=== PATIENT | female | born 1980 | race Caucasian/White ===

== ENCOUNTER 2019-08-16 21:51 | Inpatient (IN) ==
--- NOTE | 2019-08-16 22:26 | EKG Report ---
Test Performed on : 08/16/2019 10:03:06 PM Test Reason : sob Blood Pressure : / mmHG Vent. Rate : 103 BPM Atrial Rate : 103 BPM P-R Int : 128 ms QRS Dur : 066 ms QT Int : 334 ms P-R-T Axes : 050 032 025 degrees QTc Int : 437 ms Sinus tachycardia. Nonspecific ST abnormality Abnormal ECG No previous ECGs available Unconfirmed Result
[2019-08-16 22:28] LABS: URINE SOURCE CLEAN CATCH
[2019-08-16 22:32] LABS: BASO# 0.02 X1000 (0.0-0.2); BASO% 0.2 % (0.0-0.8); EOS# 0.04 X1000 (0.0-0.7); EOS% 0.4 % (0.0-10.0); HEMATOCRIT 32.8 % (37.0-47.0); HEMOGLOBIN 10.1 g/dL (12.0-16.0); IMM GRAN# 0.02 X1000 (0.0-0.04); IMM GRAN% 0.2 % (0.0-0.5); LYMPH# 1.82 X1000 (1.2-3.4); LYMPH% 17.5 % (20.5-51.1); MCH 23.2 PG (27-31); MCHC 30.8 g/dL (33-37); MCV 75.4 FL (81-99); MONO# 0.89 X1000 (0.11-0.59); MONO% 8.5 % (1.7-9.3); MPV 11.5 FL (7.4-10.4); NEUT# 7.63 X1000 (1.4-6.5); NEUT% 73.2 % (42.2-75.2); PLT 306 X1000 (130-400); RBC 4.35 XMIL (4.2-5.4); RDW 13.8 % (11.5-14.5); WBC 10.42 X1000 (4.8-10.8)
[2019-08-16 22:41] LABS: BILIRUBIN URINE NEGATIVE (NEGATIVE); BLOOD URINE NEGATIVE (NEGATIVE); COLOR YELLOW; GLUCOSE URINE NEGATIVE (NEGATIVE); KETONE URINE 20 mg/dL (NEGATIVE); LEUKOCYTES URINE SMALL (NEGATIVE); NITRITE URINE NEGATIVE (NEGATIVE); PH URINE 6.5; PROTEIN URINE 30 mg/dL (NEGATIVE); SP GRAVITY URINE 1.029; TURBIDITY URINE CLEAR (CLEAR); UROBILINOGEN URINE NORMAL (NORMAL)
[2019-08-16 22:43] LABS: UR EPITHELIAL CELLS <10 /HPF (<10); URINE BACTERIA NEGATIVE /HPF; URINE RBC <10 /HPF (<10); URINE WBC <10 /HPF (<10)
[2019-08-16 22:44] LABS: ESTIMATED GFR > 60
[2019-08-16 22:50] LABS: AGAP 11; ALB/GLOB RATIO 1.1; ALBUMIN 3.7 g/dL (3.5-5.0); ALKALINE PHOSPHATASE 85 U/L (32-104); AMYLASE 14 U/L (20-200); BUN 8 mg/dL (8-22); CALCIUM 9.4 mg/dL (8.8-10.2); CHLORIDE 100 mmol/L (98-107); COSMO 270; CREATININE 0.6 mg/dL (0.5-0.9); GLUCOSE 121 mg/dL (70-104); GOT 16 U/L (10-30); GPT 8 U/L (10-36); LIPASE 20 U/L (13-60); POTASSIUM 4.2 mmol/L (3.5-5.1); SODIUM 135 mmol/L (136-145); TCO2 24 mmol/L (25-35); TOTAL BILIRUBIN 0.43 mg/dL (0.20-1.00)
[2019-08-17] MEDS ORDERED: ZOFRAN IV ONE (04:08)
[2019-08-17] MEDS ORDERED: MORPHINE IV ONE ×2 (04:08→09:05)
[2019-08-17] MEDS ORDERED: ZITHROMAX PO ONE (04:56)
[2019-08-17] MEDS ORDERED: ROCEPHIN IM ONE (04:56)
[2019-08-17] MEDS ORDERED: XYLOCAINE-MPF 1% INJ ONE (04:56)
[2019-08-17] MEDS ORDERED: ROCEPHIN 1 GM in NS 50 ML IV ONE (05:04)
--- NOTE | 2019-08-17 05:29 | PROVIDER DOCUMENTATION ---
This chart was entered by Syeda Ivey Scribe, acting as scribe for Lamine Ricardo MD. HPI-General Adult - General Chief Complaint: Abdominal Pain Stated Complaint: RIGHT SIDE PAIN Time Seen by Provider: 08/17/19 00:31 Source: patient Allergies/Adverse Reactions: Patient Allergies Allergy/AdvReac Type Severity Reaction Status Date / Time No Known Allergies Allergy Verified 03/27/16 08:39 Home Medications: Home Medication List Medication Instructions Recorded Confirmed Last Taken Type Albuterol Sulfate [Proair Hfa] 2 puff IH PRN PRN 03/27/16 04/01/16 03/25/16 History Amphet Asp/Amphet/D-Amphet 1.5 tab PO BID 03/27/16 04/01/16 03/28/16 History [Adderall 10 mg Tablet] Clomiphene Citrate [Clomid] 50 mg PO DIRECTED 03/27/16 04/01/16 03/12/16 History Hydrocodone/APAP 7.5 mg/325 mg 1 each PO Q4-6H PRN PRN #0 tablet 04/01/16 Unknown Rx [[place]-7.5] - History of Present Illness -Gen Adult Nature of Presenting Problems: 39 yowf presents to er w/cc pain in rt rib radiating to rt flank w./nausea and 1 episode of "aggressive" vomiting friday night. pt sts she has had constant muscle spasm in rt flank for 4 hrs. denies fever, eent, diarrhea, dysuria, hematuria, and denies trauma. hx of gerd. sx fall bladder and lapband. pt denies unusual physical activity. Location of Pain/Injury: reports: abdomen (ruq), other (rt rib) Pain Radiation: reports: flank (R) Quality of Pain: reports: sharp Severity: reports: mild Onset/Duration: reports: last night Timing: reports: still present Context/Activities at Onset: reports: none Modifying Factors: improves with: breathing, palpation Associated Symptoms: reports: nausea, vomiting (x1 friday) Review of Systems - Adult - REVIEW OF SYSTEMS - ADULT Constitutional: reports: no symptoms reported. denies: fever, fatique, night sweats Eyes: reports: no symptoms reported Ears, Nose, Mouth & Throat: reports: no symptoms reported Cardiovascular: reports: see HPI, other (rt rib pain radiating to rt flank). denies: chest pain, heart murmur, palpitations Respiratory: reports: no symptoms reported Gastrointestinal: reports: see HPI, abdominal pain (ruq), nausea, vomiting (x1 episode friday which was aggressive). denies: hematemesis, diarrhea, difficulty swallowing Genitourinary: reports: see HPI, flank pain (rt). denies: dysuria, hematuria, hesitency Musculoskeletal: reports: see HPI, other (muscle spasms). denies: back pain, joint pain, joint swelling, neck pain Integumentary: reports: no symptoms reported Neurological: reports: no symptoms reported Psychiatric: reports: no symptoms reported Endocrine: reports: no symptoms reported Hematologic/Lymphatic: reports: no symptoms reported Allergic/Immunologic: reports: no symptoms reported All Other Systems: Reviewed and Negative Past History - Adult - PAST MEDICAL HISTORY-ADULT Review of Records: reports: Nursing Assessment Review, Medications Reviewed, Social history reviewed & non-contributory. Major Childhood Illnesses: reports: denies history Cardiovascular: reports: denies history Respiratory: reports: denies history Gastrointestinal: reports: GERD Obstetrical/Gynecological: reports: denies history Genitourinary: reports: denies history Musculoskeletal: reports: denies history Neurological: reports: denies history Endocrine/Immune: reports: denies history Other Conditions: reports: denies history - PRIOR SURGERIES/PROCEDURES Surgical/Procedure History: reports: cholecystectomy, gastric bypass (lapband) - IMMUNIZATION STATUS Childhood Immunizations: See Nurse Assessment Flu Vaccine: See Nurse Assessment - FAMILY HISTORY Family History: reviewed, not pertinent - SOCIAL HISTORY Smoking: non-smoker Substance Use: alcohol Alcohol Use Frequency: occasionally Physical Exam-General - PHYSICAL EXAM-ADULT Initial Vital Signs Reviewed: Yes - CONSTITUTIONAL General Appearance: alert, mild distress, obese. negative: lethargic, slow to respond, obtunded - EYES Eyes: PERRL/EOMI, pink conjunctivae - HEAD, EARS, NOSE, MOUTH & THROAT HENMT: normocephalic/atraumatic, moist mucous membranes, normal ENT inspection - NECK Neck: non-tender, full range of motion, supple, normal inspection - RESPIRATORY Respiratory: lungs clear, normal breath sounds, no pleuratic chest pain, no respiratory distress, other (rt rib pain under breast to palp). negative: chest non-tender, splinting, decreased rate, increased rate - CARDIOVASCULAR Cardiovascular: normal peripheral pulses, regular rate, rhythm - CHEST (BREASTS) Chest/Breast: tenderness (rt rib under breast to palp) - GASTROINTESTINAL (ABDOMEN) Abdominal Exam: normal bowel sounds, soft, no organomegaly, no pulsatile mass, tenderness (ruq to palp). negative: non tender - MUSCULOSKELETAL Back Exam: normal inspection Extremity: normal range of motion, non-tender, normal inspection Peripheral Pulses: radial (R): 2+, radial (L): 2+ - SKIN Integumentary: normal color, normal turgor, warm/dry - NEUROLOGIC Neurologic: grossly normal, no motor/sensory deficits - PSYCHIATRIC Psych/Mental Status: normal mood/affect, normal thought content, normal thought process, oriented x 3 Progress - PLAN OF CARE/RESULTS Progress/Plan/Lab Results: Vital Signs - 8 hr 08/16/19 21:55 Temperature 98.1 F Pulse Rate 120 H Respiratory Rate 19 Blood Pressure 166/85 O2 Sat by Pulse Oximetry 96 Bedside Urine ED: Urine Bedside Start: 08/16/19 21:58 Freq: NOW Status: Active Protocol: Activity Type Activity Date Activity User E-Sign Co-Sign Detail Recorded Client Recorded Date Recorded By Document 08/16/19 22:24 [id number] 08/16/19 22:24 [id number] 08/16/19 22:24 Point of Care [Bedside Point of Care] -Lot # [id number] - Results Negative -Control Line Visible? Yes -Additional Comment 07/08/2020 Laboratory Results - last 24 hr 08/16/19 08/16/19 08/16/19 22:09 22:09 22:25 WBC 10.42 RBC 4.35 Hgb 10.1 L Hct 32.8 L MCV 75.4 L MCH 23.2 L MCHC 30.8 L RDW Std Deviation 13.8 Plt Count 306 MPV 11.5 H Immature Gran % (Auto) 0.2 Neut % (Auto) 73.2 Lymph % (Auto) 17.5 L Mccre[place] % (Auto) 8.5 Eos % (Auto) 0.4 Baso % (Auto) 0.2 Immature Gran # (Auto) 0.02 Neut # (Auto) 7.63 H Lymph # (Auto) 1.82 Mccreary # (Auto) 0.89 H Eos # (Auto) 0.04 Baso # (Auto) 0.02 Sodium 135 L Potassium 4.2 Chloride 100 Carbon Dioxide 24 L Anion Gap 11 BUN 8 Creatinine 0.6 Estimated GFR/1.73 m2 > 60 BUN/Creatinine Ratio 13 Glucose 121 H Calculated Osmolality 270 Calcium 9.4 Total Bilirubin 0.43 AST 16 ALT 8 L Alkaline Phosphatase 85 Total Protein 7.0 Albumin 3.7 Globulin 3.3 Albumin/Globulin Ratio 1.1 Amylase 14 L Lipase 20 Urine Source CLEAN CATCH Urine Color YELLOW Urine Turbidity CLEAR Urine pH 6.5 Ur Specific [place] 1.029 Urine Protein 30 A Ur Glucose (Stick) NEGATIVE Ur Ketones (Stick) 20 A Urine Blood NEGATIVE Urine Nitrite NEGATIVE Urine Bilirubin NEGATIVE Urobilinogen Dipstick NORMAL Urine Leukocytes SMALL A Urine WBC (Auto) <10 Urine RBC (Auto) <10 U Epithel Cells (Auto) <10 Urine Bacteria (Auto) NEGATIVE Orders Category Date Time Status ED: Urine Bedside NOW Care 08/16/19 21:58 Active Nursing- Obtain EKG ONCE Care 08/17/19 00:44 Active Saline Loc DIRECTED Care 08/16/19 21:57 Active FLAT/UPRIGHT ABD/1 VIEW CHEST [RAD] Stat Exams 08/17/19 00:44 Ordered AMYLASE [CHEM] Stat Lab 08/16/19 22:09 Completed CBC WITH ELECTRONIC DIFF [HEME] Stat Lab 08/16/19 22:09 Completed COMPREHENSIVE METABOLIC PANEL [CHEM] Stat Lab 08/16/19 22:09 Completed D-DIMER [COAG] Stat Lab 08/17/19 00:44 Uncollected LIPASE [CHEM] Stat Lab 08/16/19 22:09 Completed URINALYSIS W/POSS RFLX CULT [URINALYSIS] Stat Lab 08/16/19 22:25 Completed EKG [EKG] Stat Ther 08/16/19 21:58 Draft EKG [EKG] Stat Ther 08/17/19 00:44 Ordered Result Diagrams: 08/16/19 22:09 08/16/19 22:09 - EKG 1 Time of EKG reading by physician:: 22:03 EKG Read and Signed by:: Lamine Ricardo EKG Interpretation (*Must complete 3 of following elements*): Abnormal Rate: 103 Rhythm: ST [place]: normal QRS: normal CT Interval: normal ST Wave: non-specific ST changes (Nonspecific ST abnormality) - CT/MRI 1 CT Study: Angiogram Impression: Abnormal CT Results: mod R pleural effusion. Has consolidation to RLL, could be pneumonia - CONSULTS/PCP/HOSPITALIST Notification #1 *Consult/PCP/Hospitalist*: [place] Time Discussed: 05:20 Departure - Departure Date of Disposition Decision: 08/17/19 Time of Disposition Decision: 05:01 DIAGNOSIS: Pleural effusion, right Disposition: ADMITTED INPATIENT 09 Certified Medical Emergency: Emergent Condition: Stable Referrals and Follow-Ups: Dashawn Mcnamara MD [Primary Care Provider] - - Critical Care Note This patient required my direct & personal management of CC.: No Attestation - Physician/ GISELA Attestation Patient care was provided by Advanced Practice Provider:: No The physician spent face to face time with patient:: Yes Advanced Practice Provider documentation review:: Supervising physician onsite and consulted in the evaluation and care of this patient. The physician did have a face to face encounter with the patient. This chart was documented by the indicated scribe, (Syeda Ivey Scribe) and accurately reflects the services I performed and decisions made by me, Lamine Ricardo MD, as attested by the provider's signature.
--- NOTE | 2019-08-17 07:24 | Diag Imaging Result Doc PS360 ---
EXAM: FLAT/UPRIGHT ABD/1 VIEW CHEST 08/17/2019 HISTORY: R chest/abd pain TECHNIQUE: Flat and upright abdomen with PA chest COMMENT: There is basilar opacity on the right with obscuration of the hemidiaphragm and possible pleural fluid. There has been apparent cholecystectomy. There is a lap band. The stomach is not distended. There is some colonic gas and stool in the rectum. No small bowel dilatation is present. There is no evidence of organomegaly or mass. IMPRESSION: Nonspecific abdomen. Mild constipation. Atelectasis versus pneumonia right lower lobe with right pleural effusion. Electronically signed by Nghia Huddleston 08/17/2019 7:21 AM
--- NOTE | 2019-08-17 08:00 | Diag Imaging Result Doc PS360 ---
EXAM: CT ANGIOGRM PULMONARY ARTERIES INDICATION: R CP, elev dimer TECHNIQUE: This exam was performed using automated exposure control, adjustment of mA or kV according to patient size, and/or use of iterative reconstruction technique. Thin section axial images and 3-D MIPS were obtained. COMPARISON: None. FINDINGS: There is no evidence of pulmonary embolism. There is no evidence of thoracic aortic aneurysm or dissection. There is a right lower lobe airspace consolidation consistent with pneumonia. There is a small right pleural effusion and right basilar atelectasis. There is a calcified granuloma in the left lower lobe. There are prominent right hilar lymph nodes that are probably reactive. There is no cardiomegaly. Limited views of the upper abdomen are essentially unremarkable. IMPRESSION: 1.Right lower lobe pneumonia with a small right parapneumonic effusion and right basilar atelectasis. 2.No evidence of pulmonary embolism. Electronically signed by Glenn Ivey 08/17/2019 7:58 AM
[2019-08-17] MEDS ORDERED: ROBAXIN PO ONE (09:02)
[2019-08-17] MEDS ORDERED: ZOFRAN IV PRN (09:40)
[2019-08-17] MEDS ORDERED: LACTULOSE PO ONE (09:40)
[2019-08-17] MEDS: ZOSYN 3.375 GM in NS 50 ML IV SCH ×3 (10:11→21:22)
[2019-08-17] MEDS: DUONEB (A & A) INH SCH ×3 (10:19→22:37)
[2019-08-17] MEDS: MORPHINE IV PRN ×3 (10:21→23:17)
[2019-08-17] MEDS: MIRALAX PO SCH ×2 (12:36→21:22)
[2019-08-17] MEDS: NORCO-7.5 PO PRN ×2 (13:03→21:21)
--- NOTE | 2019-08-17 13:55 | HISTORY AND PHYSICAL ---
ADDENDUM: HISTORY OF PRESENT ILLNESS: The patient is seen and examined by me [id number]. All the laboratory, vital signs and images were reviewed. The patient presented to the emergency department complaining of right lower chest pain, right upper quadrant and flank pain, abdominal pain. Apparently she had an episode of vomiting last Friday night and after that, she has been having pain in that area and also she states that she has been having some spasm in that area. The pain comes when she breathes. When I asked her to stop breathing, she was not complaining of pain, but as soon as she starts breathing, her breathing is shallow and is painful. Her D-dimer is elevated and a CT angiogram of the chest has been done that showed right lower lobe infiltrate/pneumonia with small right parapneumonic effusion and right basilar atelectasis, but no evidence of pulmonary embolism. PHYSICAL EXAMINATION: RESPIRATORY: On my physical exam, she has a decreased breath sounds in that area with some crepitus, is slightly painful to palpation at the level of the right upper quadrant, right flank and right thoracic area on the lower part. VITAL SIGNS: Are stable. GENERAL: No fever, no chills. LABORATORY DATA: No leukocytosis. She is anemic and I will do the anemia workup. Her MCV is low as well. PLAN: I will request an evaluation by Pulmonary Department. I am not quite sure about this effusion and infiltrate, her right hemidiaphragmatic is elevated probably because of atelectasis. I will put this patient on antibiotics. I will consult Pulmonary Department, oxygen as needed. Her oxygen is normal on room air, though. Pain medication and muscle relaxant. I agree with the rest of the nurse practitioner's assessment and plan. cc: Igor Bill MD
--- NOTE | 2019-08-17 14:53 | HISTORY AND PHYSICAL ---
PRIMARY CARE PROVIDER: Dr. Dashawn Mcnamara. GI: Dr. Whyte. CHIEF COMPLAINT: Muscle spasm to the right flank, now under the left breast. HISTORY OF PRESENT ILLNESS: Ms. Galeano is a 39-year-old female who carries a past medical history of gastric lap band in 2009, who reports she has some residual episodes of vomiting that is normal for her secondary to her lap band procedure. She reported on Friday she had a violent episode of vomiting and would have an intermittent in muscle spasm on the right side. She thought maybe she had fractured a rib with that episode of vomitus, so she had not been taking in any deep breaths. However, the muscle spasms became more frequent and started radiating around to her left breast. It got to the point where she could not take in any deep breaths and they were becoming constant. She came to the ED to be evaluated early in the morning on Friday. She was found to have a right lower lobe pneumonia as well as a right pleural effusion. She was initiated on IV antibiotics and given IV pain medication. She was shown to have an elevated D-dimer and some anemia. A CTA of the chest was performed that showed a right lower lobe pneumonia with a small right parapneumonic effusion and right basilar atelectasis, but no evidence of PE. On her CT of the chest it does look like her right diaphragm is elevated, so we will consult Dr. Rosario with Pulmonology. Start her on muscle relaxers, scheduled pain regimen, and morphine for breakthrough pain, as well as aggressive pulmonary toilet. She denies any fever, chills, or coughing up any sputum. No cardiac type chest pain per se. No real shortness of breath, but just short choppy breaths. She does report some nausea but no vomitus since Friday. She does have an issue with constipation. There has been no diarrhea. No dysuria. REVIEW OF SYSTEMS: Twelve-point review of systems completely negative except for those mentioned in HPI. PAST MEDICAL HISTORY: 1. Obesity, status post lap band procedure. 2. GERD. 3. Gastric ulcers. PAST SURGICAL HISTORY: 1. Gastric lap band in 2009. 2. Appendectomy. 3. Left ACL repair. 4. Bilateral carpal tunnel. 5.I&D to left breast. FAMILY HISTORY: Father with CVA and DC that he is from at the age of 56. Maternal grandmother with lung cancer. Mother with diabetes. SOCIAL HISTORY: She is . She has a 5-year-old daughter. She drinks alcohol socially. No tobacco, vaping, or marijuana. ALLERGIES: No known drug allergies. HOME MEDICATIONS: Have not been reconciled. However, the patient takes Carafate, omeprazole, Adderall, Celexa, multivitamin, and fiber. PHYSICAL EXAMINATION: VITAL SIGNS: Temperature was 98.1 degrees, heart rate 86, respirations 18, blood pressure 142/81, O2 is 96% on room air. GENERAL: Ms. Galeano is a pleasant, 39-year-old female who is sitting up in the bed, having active muscle spasms. HEENT: Atraumatic, normocephalic. PERRL. NECK: Supple. Trachea midline. CARDIOVASCULAR: S1, S2 appreciated. No murmurs, gallops, rubs noted. RESPIRATORY: Lung sounds clear. Decreased on the right. Did not appreciate any rales, rhonchi, or wheezes. However, the patient is not really able to take any good deep breath secondary to the muscle spasms. GASTROINTESTINAL: Soft, nontender, nondistended. Positive bowel sounds in 4 quadrants. EXTREMITIES: Lower extremities were negative for edema. No signs of clubbing or cyanosis. NEUROLOGIC: No focal deficits noted. DIAGNOSTIC DATA: CTA: Right lower lobe pneumonia with a small right parapneumonic effusion and right basilar atelectasis, no PE. Abdominal x-ray: Nonspecific abdomen, mild constipation, atelectasis versus pneumonia to the right lower lobe with a right pleural effusion. EKG showed a sinus tachycardia with a nonspecific ST abnormality at 103 beats per minute. LABORATORY DATA: White count 10, hemoglobin and hematocrit 10 and 32, MCV 75, platelet count 306,000. D-dimer 1.93. Sodium 135, potassium 4.2, BUN 8, creatinine 0.6, blood glucose is 121, lipase 20, amylase 14. Urinalysis is negative. ASSESSMENT AND PLAN: 1. Right lower lobe pneumonia with a small right parapneumonic effusion and right basilar atelectasis and what looks like a right elevated diaphragm. We have switched her IV antibiotics to Zosyn. We will consult Dr. Rosario. Place her on bronchodilators, aggressive pulmonary toilet, pain regimen, and muscle relaxers for her spasms, supplemental O2 if needed. 2. Anemia. We will do an anemia workup. Hemodynamically stable. 3. Elevated D-dimer. CT of the chest does not show any PE. We will rule out DVT with ultrasound. 4. Muscle spasms. We will continue with muscle relaxers and pain regimen. 5. Nausea. Continue with Zofran. 6. Gastroesophageal reflux disease. Continue with proton pump inhibitor. 7. Further recommendation to follow physician evaluation, laboratory and diagnostic data. Dictated by FLETCHER Chase for Igor Bill MD cc: MD Dashawn Ambrosio MD [facility]
--- NOTE | 2019-08-17 22:06 | CONSULTATION ---
DATE OF CONSULTATION: 08/17/2019 REQUESTING PROVIDER: FLETCHER Chase. REASON FOR CONSULTATION: Right lower lobe pneumonia, right pleural effusion, diaphragm elevation. HISTORY OF PRESENT ILLNESS: This is a 39-year-old female with a medical history of asthma, gastroesophageal reflux disease, and anxiety. She presented to the ER last night with acute right lower chest pain after 1 episode of aggressive vomiting on Friday night. Initial abdominal x-ray showed mild constipation, atelectasis versus pneumonia of right lower lobe with right pleural effusion. Later, CT angiogram pulmonary arteries showed right lower lobe pneumonia with a small right parapneumonic effusion and right basilar atelectasis, but no evidence of pulmonary embolism. She has been admitted to the medical floor for further evaluation and management. The patient currently is lying in bed with no acute distress noted. She reports some dry cough at times, but not significant. She reports that she had taken the albuterol inhaler recently more frequently than she used to for the asthma. She has palpitation at times. She was also diagnosed with dysphagia 1-1/2 years ago. She has no fever, chills, bowel habit change, urination discomfort, or wheezing. The pain in the right lower lung zone is worsened, especially with cough or deep breathing, and the pain is so severe that she feels like she cannot take any deep breath. She did have some lightheadedness recently, but no nasal congestion, chest congestion, or sore throat. PAST MEDICAL HISTORY: 1. Asthma. 2. Gastroesophageal reflux disease. 3. Anxiety. 4. ADD. 5. Morbid obesity, status post gastric bypass. Current BMI 45.6. 6. Dysphagia. PAST SURGICAL HISTORY: Cholecystectomy, gastric bypass or laparoscopic band surgery, bilateral carpal tunnel release. SOCIAL HISTORY: Patient lives at home with her family. 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 She has no history of tobacco or illicit drug use. She drinks socially occasionally. FAMILY HISTORY: Reviewed and noncontributory. ALLERGIES: No known drug allergies. REVIEW OF SYSTEMS: A 10-point review of systems was conducted and the pertinent is listed within the HPI, otherwise noncontributory. PHYSICAL EXAMINATION: Vital Signs: Temperature 98.3, blood pressure 147/92, pulse 96, respiratory rate 20, oxygen saturation 97% on room air. General: Morbidly obese, lying in bed with no acute distress noted. HEENT: Atraumatic, normocephalic. Trachea midline. Mucosa pink and moist. Respiratory: Shallow. No accessory muscle use. No increased work of breathing. Symmetrical excursion. Auscultation reveals mild inspiratory crackles on the lateral right lower lobe, but not posterior right lower lobe, otherwise clear. Cardiovascular: Regular rate and rhythm. Gastrointestinal: Soft, obese, nontender. Normoactive bowel sounds in all 4 quadrants. Extremities: No pedal edema. No cyanosis. No clubbing. Dorsalis pedis 2+ bilaterally. Neurologic: Alert and oriented x3. Speech fluent. Follows commands. IMAGING DATA: See HPI. LABORATORY DATA: No labs today. ASSESSMENT: This is a 39-year-old female with a medical history of asthma, gastroesophageal reflux disease, depression, dysphagia, and morbid obesity. She has been admitted to the medical floor with right lower lobe pneumonia with small right parapneumonic effusion and right basilar atelectasis. 1. Right lower lobe pneumonia with a small right parapneumonic effusion and right basilar atelectasis. 2. Right lower lobe pleurisy. PLAN: 1. Continue antibiotics and bronchodilators. 2. No thoracentesis needed at this time. We will repeat imaging after antibiotic therapy. 3. Follow up with CBC, CMP, sputum culture and blood culture, and daily chest x- ray. 4. Continue GI and DVT prophylaxis. 5. Further recommendations pending hospital course. Thank you for the courtesy of this consult. Dictated by FLETCHER Arana for Gwen Rosario MD cc: FLETCHER Arana MD [facility]
[2019-08-17] MEDS: CARAFATE PO SCH (23:12)
[2019-08-17] MEDS: ROBAXIN PO SCH (23:12)
[2019-08-18] MEDS: DUONEB (A & A) INH SCH ×4 (03:04→21:11)
[2019-08-18] MEDS: ZOSYN 3.375 GM in NS 50 ML IV SCH ×2 (03:42→09:37)
[2019-08-18] MEDS: CARAFATE PO SCH ×5 (06:12→22:56)
[2019-08-18] MEDS: PRILOSEC PO SCH (06:13)
[2019-08-18 07:04] LABS: BASO# 0.01 X1000 (0.0-0.2); BASO% 0.2 % (0.0-0.8); EOS# 0.05 X1000 (0.0-0.7); EOS% 0.9 % (0.0-10.0); HEMATOCRIT 30.8 % (37.0-47.0); HEMOGLOBIN 9.2 g/dL (12.0-16.0); LYMPH# 1.34 X1000 (1.2-3.4); LYMPH% 23.8 % (20.5-51.1); MCH 23.1 PG (27-31); MCHC 29.9 g/dL (33-37); MCV 77.4 FL (81-99); MONO# 0.66 X1000 (0.11-0.59); MONO% 11.7 % (1.7-9.3); MPV 11.4 FL (7.4-10.4); NEUT# 3.56 X1000 (1.4-6.5); NEUT% 63.4 % (42.2-75.2); PLT 294 X1000 (130-400); RBC 3.98 XMIL (4.2-5.4); RDW 14.1 % (11.5-14.5); WBC 5.62 X1000 (4.8-10.8)
[2019-08-18 07:55] LABS: FERRITIN 27 ng/mL (13-150)
[2019-08-18 08:15] LABS: AGAP 14; ALB/GLOB RATIO 1.5; ALBUMIN 3.6 g/dL (3.5-5.0); ALKALINE PHOSPHATASE 207 U/L (32-104); BUN 6 mg/dL (8-22); CALCIUM 8.2 mg/dL (8.8-10.2); CHLORIDE 99 mmol/L (98-107); COSMO 271; CREATININE 0.5 mg/dL (0.5-0.9); ESTIMATED GFR > 60; GLUCOSE 116 mg/dL (70-104); GOT 40 U/L (10-30); GPT 29 U/L (10-36); IRON SATURATION 4 %; POTASSIUM 3.7 mmol/L (3.5-5.1); SODIUM 136 mmol/L (136-145); TCO2 23 mmol/L (25-35); TIBC 408 ug/dL; TOTAL BILIRUBIN 0.44 mg/dL (0.20-1.00); TOTAL IRON 16 ug/dL (49-151); UNBOUND IRON 392 ug/dL (112-346)
--- NOTE | 2019-08-18 09:14 | Diag Imaging Result Doc PS360 ---
EXAM: CHEST-2 VIEWS 08/18/2019 HISTORY: RLL pna R pl effussion TECHNIQUE: PA and lateral chest COMMENT: There is a pleural effusion on the right. There is atelectasis versus pneumonia in the middle lobe and lower lobe. The volume of pleural fluid on the right is increased since 08/17/2019. The inspiration is actually better. IMPRESSION: Worsening right pleural effusion. Electronically signed by Nghia Huddleston 08/18/2019 9:12 AM
[2019-08-18] MEDS: MIRALAX PO SCH ×2 (09:37→22:56)
[2019-08-18] MEDS: ROBAXIN PO SCH ×2 (09:38→22:56)
[2019-08-18] MEDS ORDERED: ULTRAM PO PRN (09:48)
--- NOTE | 2019-08-18 12:45 | PROGRESS NOTE ---
DATE: 08/18/2019 SUBJECTIVE: Ms. Galeano refers to be feeling better. She still has some discomfort at the right lower thoracic area. Laboratory showed a normal white blood cell count, iron-deficiency anemia, as well as folate deficiency. Her liver enzymes are elevated compared with yesterday. I will stop all the hepatotoxic medications, and I will ask for an ultrasound of the liver. I do not have any previous records. OBJECTIVE: Vital Signs: Temperature 98.3 degrees, pulse 89, respiratory rate 17, blood pressure 141/76, oxygen saturation 99 on room air. HEENT: Head normocephalic. No trauma. PERRLA. Neck: Supple. No JVD. No masses. Central trachea. Chest: Decreased breath sounds at the bases, mostly on the right side, with crepitus and rales. Scattered rhonchi at the right base also. Abdomen: Soft. Right upper quadrant discomfort. I do not feel any hepatosplenomegaly. Extremities: No edema, no clubbing, no cyanosis. Neurological: The patient is awake and alert. She is oriented x3. No focal deficits. LABORATORY DATA: WBC 5.6, hemoglobin 9.2, hematocrit 30.8, platelets 294,000. Sodium 136, potassium 3.7, chloride 99, bicarbonate 23, BUN 6, creatinine 0.5, glucose 116, calcium 9.2. Iron 16, total iron binding capacity 408, ferritin level is 27. AST 40, ALT 29, alkaline phosphatase 207, albumin 3.6, folic acid 5.9. ASSESSMENT AND PLAN: 1. Right lower lobe pneumonia with right parapneumonic effusion and right basilar atelectasis. She has been placed on antibiotics. She has been started on Zosyn, which I have discontinued, and put this patient on meropenem due to elevation of the liver function tests. Pulmonary Department is following this patient. Continue with the same management otherwise. 2. Anemia due to iron deficiency. Her MCV is low. Microcytic anemia. I will start replacing her iron. 3. Folic acid deficiency. Continue to replace. 4. Elevated D-dimer. CT of the chest did not show any pulmonary embolism. We are going to rule out deep venous thrombosis with ultrasound. 5. Muscle spasm, better. Continue with the same management. 6. Nausea, resolved. 7. Gastroesophageal reflux disease. Continue proton pump inhibitors. Further recommendations pending hospital course. cc: Igor Bill MD
[2019-08-18] MEDS: MERREM 1 GM in NS 50 ML IV SCH ×2 (14:41→22:56)
--- NOTE | 2019-08-18 15:19 | Diag Imaging Result Doc PS360 ---
EXAM: US ABDOMEN-COMPLETE 08/18/2019 HISTORY: Elebated LFTs TECHNIQUE: Abdominal ultrasound COMMENT: The visualized portions of the aorta and inferior vena cava are within normal limits. There is a right pleural effusion. There is no evidence of biliary dilatation the common bile duct measuring less than 4 mm. There is antegrade flow in the portal vein and the liver is otherwise unremarkable in appearance. The spleen is not enlarged. The kidneys are without evidence of hydronephrosis or mass. The gallbladder is surgically absent. The pancreas is obscured. IMPRESSION: Right pleural effusion. No evidence of acute disease in the abdomen. Electronically signed by Nghia Huddleston 08/18/2019 3:16 PM
[2019-08-18] MEDS: FOLIC ACID PO SCH (22:56)
[2019-08-18] MEDS: FERROUS SULFATE PO SCH (22:56)
[2019-08-19] MEDS: DUONEB (A & A) INH SCH (03:36)
[2019-08-19] MEDS: MERREM 1 GM in NS 50 ML IV SCH (05:45)
[2019-08-19] MEDS: CARAFATE PO SCH (05:45)
[2019-08-19] MEDS: PRILOSEC PO SCH ×2 (05:45→09:34)
[2019-08-19 06:34] LABS: HEMATOCRIT 31.3 % (37.0-47.0); HEMOGLOBIN 9.1 g/dL (12.0-16.0)
--- NOTE | 2019-08-19 06:50 | Diag Imaging Result Doc PS360 ---
EXAM: CHEST-PORTABLE HISTORY: dyspnea TECHNIQUE: Single view COMPARISON: 08/18/2019 FINDINGS: Poor inspiratory effort. There is a small right pleural effusion with basilar atelectasis and infiltrates. The left lung remains clear. The heart is mildly prominent. IMPRESSION: No interval improvement Electronically signed by Rayshawn Acevedo 08/19/2019 6:47 AM
[2019-08-19 06:53] LABS: AGAP 10; ALB/GLOB RATIO 1.3; ALBUMIN 3.2 g/dL (3.5-5.0); ALKALINE PHOSPHATASE 152 U/L (32-104); BUN 6 mg/dL (8-22); CALCIUM 8.2 mg/dL (8.8-10.2); CHLORIDE 102 mmol/L (98-107); COSMO 275; CREATININE 0.6 mg/dL (0.5-0.9); ESTIMATED GFR > 60; GLUCOSE 104 mg/dL (70-104); GOT 14 U/L (10-30); GPT 18 U/L (10-36); POTASSIUM 4.1 mmol/L (3.5-5.1); SODIUM 139 mmol/L (136-145); TCO2 27 mmol/L (25-35); TOTAL BILIRUBIN 0.17 mg/dL (0.20-1.00); TOTAL PROTEIN 5.6 g/dL (6.3-8.3)
[2019-08-19 08:36] VITALS: BP 129/71
[2019-08-19] MEDS ORDERED: ADDERALL PO SCH (09:00)
[2019-08-19] MEDS ORDERED: CELEXA PO SCH (09:00)
[2019-08-19] MEDS ORDERED: PRILOSEC PO SCH (09:00)
[2019-08-19] MEDS: FOLIC ACID PO SCH (09:34)
[2019-08-19] MEDS: FERROUS SULFATE PO SCH (09:34)
[2019-08-19] MEDS: ROBAXIN PO SCH (09:35)
[2019-08-19] MEDS: MIRALAX PO SCH (09:40)
--- NOTE | 2019-08-20 14:13 | DISCHARGE SUMMARY ---
ADMISSION DATE: 08/16/2019 DISCHARGE DATE: 08/19/2019 DIAGNOSES: 1. Right lower lobe pneumonia with small right parapneumonic effusion. 2. Anemia. 3. Elevated D-dimer with a pulmonary negative for pulmonary embolus. 4. Iron deficiency anemia. Folic acid deficiency. Muscle spasm. Nausea, resolved. Gastroesophageal reflux disease. DIAGNOSTICS: 1. 08/17/2019, abdomen x-ray revealed nonspecific abdomen. There is mild constipation. Chest x- ray revealed atelectasis versus right lower lobe pneumonia with a right pleural effusion. 2. CTA pulmonary arteries revealed right lower lobe pneumonia with small right parapneumonic effusion and right basilar atelectasis. No evidence of pulmonary embolism. 3. 08/18/2019, chest x-ray revealed worsening right pleural effusion. 4. 08/19/2019 revealed stable chest x-ray compared to 08/18/2019. 5. Microbiology blood cultures x2 revealed no growth after 48 hours. HOSPITAL COURSE: Ms. Galeano presented to the emergency room complaining of muscle spasm to the right flank and pain under her left breast. She was found to have right lower lobe pneumonia with a right parapneumonic effusion and right basilar atelectasis. Dr. Rosario was consulted. She was felt to have right lower lobe pleurisy. He did follow her throughout the hospitalization. She has improved. Her discomfort remains in the right thoracic area, although has improved greatly. She was found to have a low MCV. We did start replacing iron. We continued to replace her folic acid. She does state that her muscle spasm has improved. DISCHARGE VITAL SIGNS: Blood pressure is 129/71, heart rate of 90, respirations 16, temperature is 98.2 degrees oral with room air saturations 98%. DISCHARGE PHYSICAL EXAMINATION: Cardiovascular: Regular rate and rhythm. S1 and S2 appreciated. She has no lower extremity edema. Calves are nontender. Bilateral peripheral pulses palpable x4 extremities. Chest: Breath sounds are decreased throughout. She does have a few rales to the right base. She does have some scattered rhonchi to the right base that do not completely clear to cough. Chest rises and falls symmetric to respiration. Gastrointestinal: Abdomen is soft. She does have a little right upper quadrant discomfort to palpation with no hepatosplenomegaly felt. Neurologic: She is alert and oriented x3. DISCHARGE MEDICATIONS: 1. Ultram 50 mg p.o. q. 6 hours p.r.n. 2. Robaxin 500 p.o. b.i.d. 3. MiraLAX 17 g b.i.d. as needed for constipation. 4. Folic acid 1 mg p.o. b.i.d. 5. Ferrous sulfate 325 p.o. b.i.d. 6. Augmentin 875 p.o. q. 12 hours x5 days. 7. Carafate 400 mg p.o. daily. 8. ProAir inhaler 2 puffs p.r.n. wheezing. 9. Omeprazole 40 mg p.o. daily. 10. Celexa 20 mg p.o. daily. 11. Adderall 15 mg p.o. b.i.d. FOLLOWUP: 1. Dr. Rosario 08/26/[address] at [address] Travis. She needs to call in the morning to schedule an appointment for anemia workup. 3. Dr. Mcnamara, her primary care provider. She is to call tomorrow and schedule an appointment in the next 1 to 2 weeks. 4. She is being discharged home in stable condition with family members. TIME SPENT: This is a greater than 30 minute discharge. Dictated by FLETCHER Cavazos for Igor Bill MD cc: FLETCHER Cavazos MD
--- NOTE | 2019-08-30 08:15 | Extremity Venous Study ---
PROCEDURE NAME: Venous U/S Bilateral Legs - 08/17/2019 PROCEDURE: Bilateral lower extremity venous duplex and color flow imaging study using the GE vivid E9 ultrasound system with 9 L-D transducer. REFERRING PHYSICIAN: Dr. Sheehan. IDENTIFICATION: A 39-year-old female. CLEATER: Ghazala Campos RVT. INDICATIONS: Elevated D-dimer. FINDINGS: The right common femoral vein and its branches, deep and superficial femoral veins were satisfactorily imaged. They had flow through them and were compressible. The right popliteal vein and deep veins below the right knee were all compressible and had flow through them. The superficial veins to the right lower extremity were compressible throughout their length. The left common femoral vein and its branches, deep and superficial femoral veins were also satisfactorily imaged. They had flow through them and were compressible. The left popliteal vein and deep veins below the left knee were all compressible and had flow through them. The superficial veins of the left lower extremity were compressible throughout their length. INTERPRETATION: No evidence of acute deep or superficial venous thrombosis of the bilateral lower extremities. cc: Nona Baeza MD
== END 2019-08-19 09:46 | disposition home or self-care (01) | DRG 194 ==
LOC: ED 21:51 → EDIPHOLD 21:52 → 4N 08-17 11:01
PROVIDERS: ATTEND Internal Medicine